=== PATIENT | male | born 1960 | race Caucasian/White ===

== ENCOUNTER 2018-03-12 13:06 | Outpatient (CLI) | payer OTHER ==
[~2018-03-12] VITALS: Ht 165.1 cm; Wt 66.7 kg
[2018-03-12 13:40] VITALS: BP 144/87
[2018-03-12] MEDS ORDERED: insulin SUBQ (13:43)
[2018-03-12] MEDS ORDERED: METFORMIN HCL500 M1 ORAL (13:43)
[2018-03-12] MEDS ORDERED: DOCUSATE SODIU100 MG ORAL (13:43)
[2018-03-12] MEDS ORDERED: BENAZEPRIL HCL20 MG ORAL (13:43)
[2018-03-12] MEDS ORDERED: TAMSULOSIN HCL0.4 MG ORAL (13:43)
--- NOTE | 2018-03-12 14:20 | GI Initial Consult Note ---
History of Present Illness General Date patient seen: Mar 12, 2018 Time patient seen: 14:15 Referring physician: O Reason for Consultation: ANEMIA / Colonoscopy Present Illness HPI 58 year old male presents today with c/o of abdominal pain and constipation. Per patient, had colonoscopy approximately 7-8 years ago noted with polyps. Possible history of Anemia. Denies any unintentional weight loss or changes in dietary habits. No signs of abuse or neglect. Patient is not fall risk. Home Meds Reported Medications Docusate Sodium* (DOCUSATE SODIUM*) 100 Mg Capsule, 100 MG ORAL TWICE A DAY, CAP 03/12/18 Tamsulosin Hcl (TAMSULOSIN HCL*) 0.4 Mg Cap.er.24h, 0.4 MG ORAL BEDTIME, CAP 03/12/18 [insulin] No Conflict Check, 22 UNIT SUBQ ACBREAKFAST 03/12/18 Benazepril Hcl* (BENAZEPRIL HCL*) 20 Mg Tablet, 20 MG ORAL EVERY 12 HOURS, TAB 03/12/18 Metformin Hcl* (METFORMIN HCL*) 500 Mg Tablet, 500 MG ORAL TWICE A DAY, TAB 03/12/18 Med list reviewed/reconciled: Yes Allergies: Coded Allergies: No Known Allergies (Unverified , 03/12/18) Patient History History Provided By: Patient, Medical Record PMH Narrative GERD HTN BPH Stroke >> recent discharge 02/09/18. DM Pertinent Family History: none Social History: Denies: smoking, alcohol use, drug use, other Review of Systems All Other Systems: negative except mentioned in HPI Physical Exam Vital Signs Date Time Temp Pulse Resp B/P (MAP) Pulse Ox O2 Delivery O2 Flow Rate FiO2 03/12/18 13:40 98.2 76 16 144/87 100 98.2 Sp02 EP Interpretation: reviewed, normal General Appearance: well appearing, no apparent distress, alert Head: normocephalic EENT: PERRL/EOMI, normal ENT inspection Neck: supple Respiratory: normal breath sounds, no respiratory distress Cardiovascular: normal rate Gastrointestinal: normal inspection, non tender, soft, normal bowel sounds, non -distended Rectal: deferred Genitourinary: deferred Musculoskeletal: normal inspection, back normal Neurologic: normal inspection, alert, oriented x3, responsive Psychiatric: normal inspection, judgement/insight normal, memory normal Skin: normal inspection, normal color, no rash, warm/dry, palpation normal, well hydrated Lymphatic: normal inspection, no adenopathy GI: Plan Problems: (1) GERD (gastroesophageal reflux disease) (2) Colonoscopy planned (3) BPH (benign prostatic hyperplasia) (4) HTN (hypertension) (5) Stroke (6) Diabetes mellitus (7) Constipation Plan ?Anemia Hx of CVA Colonoscopy to be scheduled pending PA, will contact patient. - CLD & (Nulytely/Suprep/Movi-Prep) prep instructions given and acknowledged by patient. - NPO @ PA day prior procedure explained. - pt to hold blood thinner minimum 3 days prior procedure. Seen with Dr. Hickman. Thank you for this patient referral. The patient was seen and examined at bedside and all new and available data was reviewed in the patients chart. I agree with the above findings, impression and plan. (Patient seen earlier today. Signature stamp does not reflect patient encounter time.). - [facility] Mar 12, 2018 14:20
[2018-03-12] MEDS ORDERED: OMEPRAZOLE20 M2 ORAL (15:21)
== END 2018-03-12 13:36 | disposition home or self-care (01) ==
LOC: PAN 13:06
DX: R10.9 Unspecified abdominal pain (principal); K59.00 Constipation, unspecified; K21.9 Gastro-esophageal reflux disease without esophagitis; N40.0 Benign prostatic hyperplasia without lower urinary tract symptoms; I10 Essential (primary) hypertension; Z86.73 Personal history of transient ischemic attack (TIA), and cerebral infarction without residual deficits; E11.9 Type 2 diabetes mellitus without complications
CPT/HCPCS: 99201